=== PATIENT | male | born 1935 | race Caucasian/White ===

== ENCOUNTER 2018-03-30 14:29 | Outpatient (CLI) | payer MEDICARE, OTHER ==
--- NOTE | 2018-03-30 17:30 | RAD ---
TWO VIEWS OF THE LEFT HIP 03/30/18 COMPARISON: None. HISTORY: Left hip pain. FINDINGS: Two views of the left hip shows no evidence of acute fracture or dislocation. There is severe degener ative changes of the left hip with joint space narrowing and osteophyte formation. IMPRESSION: Severe left hip osteoarthritis without acute osseous abnormality. POS: [facility]
--- NOTE | 2018-03-30 17:36 | RAD ---
TWO VIEWS LUMBAR SPINE: 03/30/18 HISTORY: Back pain, Scoliosis. COMPARISON: None available. FINDINGS: There is prominent left convex rotoscoliosis of the lumbar spine centered at the L2-3 level. There ar e five nonribbearing lumbar type vertebral bodies. There is mild left lateral subluxation of C3 on C4 . Multilevel degenerative changes are present with narrowing of the intervertebral disc spaces at all levels with multilevel osteophytes present. Vertebral body heights appear grossly within normal limi ts. Vascular calcifications seen in the left upper quadrant. IMPRESSION: 1. Multilevel degenerative changes in the lumbar spine with prominent left convex rotoscoliosis present. 2. Mild left lateral subluxation of L3 on L4 related to scoliosis and degenerative changes. POS: [facility]
== END 2018-03-30 14:30 | disposition home or self-care (01) ==
LOC: BICRAD 14:29
PROVIDERS: ATTEND Physical Medicine & Rehabilitation
DX: M25.552 Pain in left hip (principal); M54.9 Dorsalgia, unspecified; M47.816 Spondylosis without myelopathy or radiculopathy, lumbar region; M41.9 Scoliosis, unspecified; M16.12 Unilateral primary osteoarthritis, left hip; S33.130A Subluxation of L3/L4 lumbar vertebra, initial encounter
CPT/HCPCS: 72100